=== PATIENT | male | born 1990 | race Two or more races ===

== ENCOUNTER → 2019-03-20 | Outpatient (CLI) | payer BC ==
--- NOTE | 2019-03-20 14:42 | CT ---
EXAMINATION TYPE: CT soft tissue neck w con DATE OF EXAM: 03/20/2019 2:19 PM COMPARISON: HISTORY: Enlarged lymph node marked by bb. left submandibular. CT DLP: 531.4 mGycm Automated exposure control for dose reduction was used. CONTRAST: CT scan of the neck is performed following with IV Contrast, patient injected with 100 mL of Isovue 3 00. Axial images are obtained, coronal and sagittal reformatted images are reviewed. FINDINGS: Lung apices are clear. Thyroid gland enhances normally. Vocal cords are normal. Trachea is patent. Within the left submandibular gland there is a mass with calcification measuring 1.9 cm. This corresp onds to the area of palpable abnormality. Vasculature enhances normally. There is shotty lymphadenopathy. Parotid glands have a symmetric appearance. Intraorbital, visualized intracranial structures are within normal limits. Oropharynx and nasopharynx symmetric. Base the tongue is symmetric. IMPRESSION: 1. There is a 1.9 cm mass within the left submandibular gland with internal calcification correspondi ng area of palpable abnormality.
== END | disposition home or self-care (01) ==
LOC: RADCTMAIN 13:51
PROVIDERS: ATTEND Internal Medicine
DX: K11.8 Other diseases of salivary glands (principal); R59.0 Localized enlarged lymph nodes
CPT/HCPCS: 70491; Q9967

== ENCOUNTER 2019-04-18 12:36 | Day surgery (SDC) | payer BC ==
[2019-04-18 12:50] VITALS: BP 138/76; PULSE 59; RESP 20; TEMP 98.3
--- NOTE | 2019-04-18 14:32 | US ---
ULTRASOUND GUIDED BIOPSY LEFT SUBMANDIBULAR MASS: CLINICAL HISTORY: Submandibular mass FINDINGS: The procedure was explained to the patient. The risks, complications, benefits and alternatives were discussed and any questions were answered. Informed consent was obtained. Patient was placed supin e on the ultrasound table and prepped and draped in the usual sterile fashion. Utilizing a 18-gauge core biopsy needle to passes were made into the left submandibular requested mass Patient was stable throughout the procedure. Pathology is pending. All elements of maximal barrier and sterile technique were utilized. IMPRESSION: 1. Successful ultrasound guided core biopsy left submandibular mass.
== END 2019-04-18 14:10 | disposition home or self-care (01) ==
LOC: RADPROMAIN 12:36
PROVIDERS: ATTEND Otolaryngology
DX: D11.7 Benign neoplasm of other major salivary glands (principal)
CPT/HCPCS: 20206; 76942; 88305